=== PATIENT | female | born 1995 | race Two or more races ===

== ENCOUNTER → 2025-04-22 | Outpatient (CLI) | payer OTHER | END | disposition home or self-care (01) | LOC: PRENATAL 08:10 | PROVIDERS: ATTEND Obstetrics & Gynecology Maternal & Fetal Medicine | DX: O36.80X0 Pregnancy with inconclusive fetal viability, not applicable or unspecified (principal); Z36.82 Encounter for antenatal screening for nuchal translucency; Z14.8 Genetic carrier of other disease; Z3A.13 13 weeks gestation of pregnancy ==

== ENCOUNTER 2025-06-10 15:04 | Outpatient (CLI) | payer OTHER | END 2025-06-10 15:05 | disposition home or self-care (01) | LOC: PRENATAL 15:04 | PROVIDERS: ATTEND Obstetrics & Gynecology Maternal & Fetal Medicine | DX: O44.02 Complete placenta previa NOS or without hemorrhage, second trimester (principal); Z3A.20 20 weeks gestation of pregnancy ==